=== PATIENT | male | born 2000 | race Caucasian/White ===

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

== ENCOUNTER 2024-12-22 19:48 | Emergency (ER) | payer OTHER ==
[~2024-12-22] VITALS: Ht 180.3 cm; Wt 102.1 kg
[~2024-12-22 19:48] MED LIST: BUPR75 PO
[2024-12-22 20:27] LABS: Source, Urine Clean Catch
[2024-12-22 20:31] LABS: BASOPHILS ABSOLUTE AUTO 0.09 K/mm3 (0.00-0.23); BASOPHILS PERCENT AUTO 1 % (0-2); EOSINOPHILS ABSOLUTE AUTO 0.14 K/mm3 (0.00-0.68); EOSINOPHILS PERCENT AUTO 1 % (0-6); Hematocrit 45.2 % (37.0-53.0); Hemoglobin 15.7 g/dL (13.5-17.5); IMMATURE GRAN ABSOLUTE AUTO 0.06 K/mm3 (0.00-0.10); IMMATURE GRAN PERCENT AUTO 0 % (0-1); LYMPHOCYTES ABSOLUTE AUTO 4.06 K/mm3 (0.84-5.20); LYMPHOCYTES PERCENT AUTO 25 % (21-46); MONOCYTES ABSOLUTE AUTO 1.22 K/mm3 (0.16-1.47); MONOCYTES PERCENT AUTO 8 % (4-13); Mean Corpuscular HGB 30.1 pg (26.0-34.0); Mean Corpuscular HGB Conc 34.7 g/dL (31.5-36.5); Mean Corpuscular Volume 87 fL (80-100); Mean Platelet Volume 10.2 fL (9.1-12.4); NEUTROPHILS ABSOLUTE AUTO 10.41 K/mm3 (1.96-9.15); NEUTROPHILS PERCENT AUTO 65 % (41-73); Platelet Count 338 K/mm3 (150-400); RDW Coefficient Variation 12.4 % (11.7-14.2); RDW Standard Deviation 38.7 fL (35.1-46.3); Red Blood Cell Count 5.22 M/mm3 (4.30-5.90); White Blood Cell Count 15.98 K/mm3 (4.00-11.30)
[2024-12-22 20:34] LABS: Bilirubin, Urine Neg (Neg); Blood, Urine 5+ (Neg); Glucose Qualitative, Urine Neg (Neg); Ketones, Urine 1+ (Neg); Leukocyte Esterase, Urine 1+ (Neg); Nitrite, Urine Pos (Neg); Protein, Urine 3+ (Neg); Specific Gravity, Urine 1.025 (1.003-1.022); Urobilinogen, Urine 1+ (Normal)
[2024-12-22 20:37] LABS: Appearance, Urine Hazy (Clear); Color, Urine Yellow (P-Yellow)
[2024-12-22 20:43] LABS: Albumin, Blood 4.5 g/dL (3.4-5.0); Albumin/Globulin Ratio 1.4 (0.8-1.8); Bilirubin, Total 0.6 mg/dL (0.1-1.0); Bun/Creatinine Ratio 10.2 (12.0-20.0); Calcium, Blood 9.8 mg/dL (8.5-10.1); Creatinine, Blood 1.47 mg/dL (0.60-1.20); Globulin, Blood 3.2 g/dL (2.2-4.0); Potassium, Blood 3.7 mmol/L (3.5-5.5); Total Protein, Blood 7.7 g/dL (6.4-8.2)
[2024-12-22 20:46] LABS: Red Blood Cells, Urine TNTC /hpf (0-2)
[2024-12-22 20:47] LABS: Bacteria Mod /hpf; Hyaline Casts 0-2 /lpf (0-2); Squamous Epithelial Cells Rare /hpf (Few)
[2024-12-22] MEDS ORDERED: NS 1,000 ML IV SCH (23:05)
[2024-12-23 01:00] VITALS: BP 154/100
== END 2024-12-23 01:08 | disposition home or self-care (01) ==
LOC: ER 19:48
PROVIDERS: Student in an Organized Health Care Education/Training Program
DX: N20.0 Calculus of kidney (principal); Z79.899 Other long term (current) drug therapy
CPT/HCPCS: 74176; 80053; 81001; 83690; 85025; 87086; 99284-25; J7030

== ENCOUNTER 2025-05-24 12:43 | Emergency (ER) | payer OTHER ==
[~2025-05-24] VITALS: Ht 182.9 cm; Wt 104.3 kg
[2025-05-24 13:35] VITALS: BP 173/98
[2025-05-24] MEDS ORDERED: AMOCLA875 PO (16:42)
== END 2025-05-24 16:49 | disposition home or self-care (01) ==
LOC: ER 12:43
DX: T65.891A Toxic effect of other specified substances, accidental (unintentional), initial encounter (principal); L03.116 Cellulitis of left lower limb; L24.5 Irritant contact dermatitis due to other chemical products; R03.0 Elevated blood-pressure reading, without diagnosis of hypertension
CPT/HCPCS: 99282